=== PATIENT | female | born 1935 | race Caucasian/White ===

== ENCOUNTER 2023-10-22 11:25 | Inpatient (IN) | payer MEDICARE ==
[2023-10-22] MEDS: SODIUM CHLORIDE 0.9% 1,000 ML IV ONE (12:07)
[2023-10-22 12:29] LABS: Basophils # (A) 0.1 k/uL (0-0.2); Basophils % (A) 1 %; Eosinophils # (A) 0.2 k/uL (0-0.7); Eosinophils % (A) 2 %; HCT 45.6 % (34.0-46.0); HGB 14.7 gm/dL (11.4-16.0); Lymphocytes # (A) 1.5 k/uL (1.0-4.8); Lymphocytes % (A) 12 %; MCH 28.6 pg (25.0-35.0); MCHC 32.2 g/dL (31.0-37.0); Mean Platelet Volume 8.2; Monocytes # (A) 0.9 k/uL (0-1.0); Monocytes % (A) 7 %; Neutrophils % (A) 76 %; Platelet Count 367 k/uL (150-450); RBC 5.12 m/uL (3.80-5.40); RDW 14.9 % (11.5-15.5); WBC 11.8 k/uL (3.8-10.6)
[2023-10-22 12:45] LABS: ALT 25 U/L (4-34); AST 44 U/L (14-36); African American GFR (CKD) 84 (>60 ml/min/1.73 sqM); Albumin 4.4 g/dL (3.5-5.0); Alkaline Phosphatase 73 U/L (38-126); Anion Gap 13 mmol/L; Blood Urea Nitrogen 32 mg/dL (7-17); Calcium 9.6 mg/dL (8.4-10.2); Carbon Dioxide 21 mmol/L (22-30); Chloride 105 mmol/L (98-107); Glucose 131 mg/dL (74-99); Non-African American GFR(CKD) 73 (>60 ml/min/1.73 sqM); Sodium 139 mmol/L (137-145); Total Bilirubin 1.1 mg/dL (0.2-1.3); Total Protein 8.3 g/dL (6.3-8.2)
--- NOTE | 2023-10-22 12:48 | CT ---
EXAMINATION TYPE: CT brain wo con CT DLP: 1138.4 mGycm, Automated exposure control for dose reduction was used. DATE OF EXAM: 10/22/2023 12:30 PM COMPARISON: None. CLINICAL INDICATION:Female, 88 years old with history of Altered mental status, TECHNIQUE: Brain: Axial CT images of the brain were obtained with coronal and sagittal reformats created and rev iewed. Contrast used: None. Oral contrast used: None. FINDINGS: Brain: Extra-axial spaces: No abnormal extra-axial fluid collections. Ventricular system: Dilatation in proportion to cerebral atrophy. Cerebral parenchyma: Cerebral atrophy. Left parietal remote injury with encephalomalacia. No acute in traparenchymal hemorrhage or mass effect. The bragg-white junction is well differentiated. Scattered hypoattenuating areas are seen within the white matter. Cerebellum: Unremarkable. Mass effect: No evidence of midline shift. Intracranial vasculature: Atherosclerotic calcifications of the intracranial vessels. Soft tissues: Normal. Calvarium/osseous structures: No depressed skull fracture. Paranasal sinuses and mastoid air cells: Mild scattered paranasal sinus disease. Visualized orbits: Bilaterally aphakia IMPRESSION: 1. No acute intracranial process. 2. Left parietal remote injury with encephalomalacia. 3. Nonspecific white matter changes, likely secondary to chronic small vessel ischemic disease.
--- NOTE | 2023-10-22 12:50 | XR ---
EXAMINATION TYPE: XR chest 2V DATE OF EXAM: 10/22/2023 12:35 PM CLINICAL INDICATION:Female, 88 years old with history of altered mental status; COMPARISON: Chest radiographs from 10/22/2023. TECHNIQUE: XR chest 2V Frontal and lateral views of the chest. FINDINGS: Lungs/Pleura: There is no evidence of pleural effusion, focal consolidation, or pneumothorax. Pulmonary vascularity: Pulmonary vascular congestion. Heart/mediastinum: Cardiomediastinal silhouette is enlarged and stable. Musculoskeletal: No acute osseous pathology. IMPRESSION: Cardiomegaly and mild pulmonary vascular congestion. Correlate with BNP for congestive heart failure.
--- NOTE | 2023-10-22 12:56 | ED ---
Altered Mental Status HPI - General Chief Complaint: Altered Mental Status Stated Complaint: AMS Time Seen by Provider: 10/22/23 11:40 Source: EMS Mode of arrival: EMS Limitations: altered mental status - History of Present Illness Initial Comments: 88-year-old female presents to the emergency department from [facility]. It is reported by EMS that the patient was found unresponsive in her wheelchair. They state that she is normally alert to self however she was minimally responsive upon them evaluating her. They felt that her last normal well was an hour. They deny that the patient had any injuries. She had no lateralizing de ficits. She is currently being treated for a urinary tract infection. Patient does arrive in A-fib with RVR. Family denies history of A-fib. Patient does not take any blood thinners. They deny history of strokes. They state that they would like the patient to have no aggressive medical measures to include CPR and intubation Upon further discussion with the family they state that previously she was living at home. She was found confused 1 day and transferred into [facility]. They found that she had advanced dementia and a urinary tract infection. Patient was just transferred to [facility] 2 days ago - Related Data Home Medications Medication Instructions Recorded Confirmed Aspirin 81 mg PO DAILY 10/22/23 10/22/23 Cefuroxime [Ceftin] 250 mg PO BID 10/22/23 10/22/23 Famotidine [Pepcid] 20 mg PO DAILY 10/22/23 10/22/23 Multivitamins, Thera [Multivitamin 1 tab PO HS 10/22/23 10/22/23 (formulary)] QUEtiapine [SEROquel] 25 mg PO HS@199910/22/23 10/22/23 Simvastatin [Zocor] 20 mg PO HS@199910/22/23 10/22/23 Sodium Chloride 0.65% Nasal [Deep 1 spr NASAL Q1HR PRN 10/22/23 10/22/23 Sea (Saline)] amLODIPine [Norvasc] 2.5 mg PO DAILY 10/22/23 10/22/23 Allergies Allergy/AdvReac Type Severity Reaction Status Date / Time No Known Allergies Allergy Verified 10/22/23 18:37 Review of Systems ROS Statement: Those systems with pertinent positive or pertinent negative responses have been documented in the HPI. ROS Other: All systems not noted in ROS Statement are negative. Past Medical History Past Medical History: Dementia Additional Past Medical History / Comment(s): hypokalemia General Exam Limitations: altered mental status General appearance: lethargic Head exam: Present: atraumatic, normocephalic, normal inspection Eye exam: Present: normal appearance, PERRL, EOMI. Absent: scleral icterus, conjunctival injection, periorbital swelling ENT exam: Present: mucous membranes dry Respiratory exam: Present: decreased breath sounds Cardiovascular Exam: Present: tachycardia, irregular rhythm GI/Abdominal exam: Present: soft, normal bowel sounds. Absent: distended, tenderness, guarding, rebound, rigid Neurological exam: Present: altered Skin exam: Present: warm, dry, intact, normal color. Absent: rash Course Vital Signs 10/22/23 10/22/23 10/22/23 11:35 11:43 12:10 Temperature 98.1 F Pulse Rate 158 H 149 H 133 H Pulse Rate [ Pulse Oximetery ] Respiratory 14 38 H 19 Rate Blood Pressure 89/78 105/73 81/68 Blood Pressure [Left Arm] O2 Sat by Pulse 97 96 96 Oximetry 10/22/23 10/22/23 10/22/23 13:00 13:03 13:30 Temperature Pulse Rate 111 H 102 H 98 Pulse Rate [ Pulse Oximetery ] Respiratory 24 20 20 Rate Blood Pressure 137/67 122/57 167/76 Blood Pressure [Left Arm] O2 Sat by Pulse 96 97 Oximetry 10/22/23 10/22/23 10/22/23 14:00 14:30 15:00 Temperature Pulse Rate 107 H 85 104 H Pulse Rate [ Pulse Oximetery ] Respiratory 22 20 16 Rate Blood Pressure 139/65 118/64 127/70 Blood Pressure [Left Arm] O2 Sat by Pulse 97 97 94 L Oximetry 10/22/23 10/22/23 10/22/23 15:30 16:33 20:00 Temperature 97.5 F L 97.4 F L Pulse Rate 98 Pulse Rate [ 96 93 Pulse Oximetery ] Respiratory 15 18 16 Rate Blood Pressure 130/74 Blood Pressure 127/77 116/69 [Left Arm] O2 Sat by Pulse 95 97 Oximetry 10/22/23 20:17 Temperature 97.6 F Pulse Rate 101 H Pulse Rate [ Pulse Oximetery ] Respiratory 16 Rate Blood Pressure 114/55 Blood Pressure [Left Arm] O2 Sat by Pulse 95 Oximetry Medical Decision Making - Medical Decision Making Was pt. sent in by a medical professional or institution ([facility], BAG MACHINE OPERATOR HELPER, urgent care, hospital, or long term...) When possible be specific @ -Rehab facility Did you speak to anyone other than the patient for history (EMS, parent, family, police, friend...)? What history was obtained from this source @ -EMS and family Did you review nursing and triage notes (agree or disagree)? Why? @ -I reviewed and agree with nursing and triage notes Were old charts reviewed (outside hosp., previous admission, EMS record, old EKG, old radiological studies, urgent care reports/EKG's, long term records)? Report findings @ -I reviewed paperwork that came from the patient's rehab facility Differential Diagnosis (chest pain, altered mental status, abdominal pain women, abdominal pain men, vaginal bleeding, weakness, fever, dyspnea, syncope, headache, dizziness, GI bleed, back pain, seizure, CVA, palpatations, mental health, musculoskeletal)? @ -Differential Altered Mental Status: Hypoglycemia, DKA, hypercapnia, ETOH, overdose, CO poisoning, trauma, myxedema coma, HTN encephalopathy, infection, encephalitis, psychosis, intercranial hemorrhage, hepatic encephalopathy, meningitis, CVA, this is not meant to be an all-inclusive list EKG interpreted by me (3pts min.). @ -Yes and demonstrates A-fib with a rate of 145. QRS 157. QTc of 399. No acute ST segment elevations or depressions Repeat EKG done at 1405 continues to demonstrate tachycardic regular rhythm with a rate of 111. [place] interval 228. QRS 144. QTc of 406. Right bundle branch block. X-rays interpreted by me (1pt min.). @ -Yes and demonstrates some pulmonary vascular congestion CT interpreted by me (1pt min.). @ -Yes and demonstrates old area of encephalomalacia U/S interpreted by me (1pt. min.). @ -None done What testing was considered but not performed or refused? (CT, X-rays, U/S, labs)? Why? @ -None What meds were considered but not given or refused? Why? @ -Cardizem however patient is already hypotensive Did you discuss the management of the patient with other professionals (professionals i.e. Dr., PA, BAG MACHINE OPERATOR HELPER, lab, RT, psych nurse, social professionals, business employment specialist, teacher, community development officer, leather case finisher)? Give summary @ -Spoke with Dr. Wagner Was smoking cessation discussed for >3mins.? @ -No Was critical care preformed (if so, how long)? @ -Yes, 35 minutes for rapid evaluation of patient who arrives with hypotension and tachycardia with altered mental status Were there social determinants of health that impacted care today? How? (Homelessness, low income, unemployed, alcoholism, drug addiction, transportation, low edu. Level, literacy, decrease access to med. care, fpc, rehab)? @ -No Was there de-escalation of care discussed even if they declined (Discuss DNR or withdrawal of care, Hospice)? DNR status @ -Yes, family would like the patient to be DNR/DNI What co-morbidities impacted this encounter? (DM, HTN, Smoking, COPD, CAD, Cancer, CVA, ARF, Chemo, Hep., AIDS, mental health diagnosis, sleep apnea, morbid obesity)? @ -Advanced dementia Was patient admitted / discharged? Hospital course, mention meds given and route, prescriptions, significant lab abnormalities, going to OR and other pertinent info. @ -Admitted. Upon arrival patient is promptly placed into trauma bay 1. She arrives altered, tachycardic in A-fib with hypotension. I spoke with the patient's family immediately who states that they would like the patient to be a DNR/DNI. The patient is given intravenous fluids due to hypotension. Decision is made to not cardiovert the patient as family would not like any advanced life -saving measures taken. Laboratory studies were conducted. Chest x-ray was performed. CT of the brain was performed. High concern for CVA due to alteration of mental status. Patient was given a dose of Rocephin as her urinalysis still demonstrates infection. I discussed the care with the patie nt's family. She will be admitted for neurology evaluation and possible hospice consult. Patient admitted to the floor in stable condition Undiagnosed new problem with uncertain prognosis? @ -Yes Drug Therapy requiring intensive monitoring for toxicity (Heparin, Nitro, Insulin, Cardizem)? @ -No Were any procedures done? @ -No Diagnosis/symptom? @ -Acute encephalopathy, new onset A-fib with RVR, hypotension UTI, possible CVA Acute, or Chronic, or Acute on Chronic? @ -Acute Uncomplicated (without systemic symptoms) or Complicated (systemic symptoms)? @ -Complicated Side effects of treatment? @ -No Exacerbation, Progression, or Severe Exacerbation? @ -No Poses a threat to life or bodily function? How? (Chest pain, [place], [place], pneumonia, PE, COPD, DKA, ARF, appy, cholecystitis, CVA, Diverticulitis, Homicidal, Suicidal, threat to staff... and all critical care pts) @ -Yes, patient could succumb to her illness - Lab Data Result diagrams: 10/22/23 11:55 10/22/23 11:55 Lab Results 10/22/23 10/22/23 10/22/23 Range/Units 11:55 11:55 11:55 WBC 11.8 H (3.8-10.6) k/uL RBC 5.12 (3.80-5.40) m/uL Hgb 14.7 (11.4-16.0) gm/dL Hct 45.6 (34.0-46.0) % MCV 89.0 (80.0-100.0) fL MCH 28.6 (25.0-35.0) pg MCHC 32.2 (31.0-37.0) g/dL RDW 14.9 (11.5-15.5) % Plt Count 367 (150-450) k/uL MPV 8.2 Neutrophils % 76 % Lymphocytes % 12 % Monocytes % 7 % Eosinophils % 2 % Basophils % 1 % Neutrophils # 9.0 H (1.3-7.7) k/uL Lymphocytes # 1.5 (1.0-4.8) k/uL Monocytes # 0.9 (0-1.0) k/uL Eosinophils # 0.2 (0-0.7) k/uL Basophils # 0.1 (0-0.2) k/uL PT (10.0-12.5) sec INR (<1.2) APTT (22.0-30.0) sec D-Dimer (<0.60) mg/L FEU Sodium 139 (137-145) mmol/L Potassium 4.7 (3.5-5.1) mmol/L Chloride 105 (98-107) mmol/L Carbon Dioxide 21 L (22-30) mmol/L Anion Gap 13 mmol/L BUN 32 H (7-17) mg/dL Creatinine 0.75 (0.52-1.04) mg/dL Est GFR (CKD-EPI)AfAm 84 (>60 ml/min/1.73 sqM) Est GFR (CKD-EPI)NonAf 73 (>60 ml/min/1.73 sqM) Glucose 131 H (74-99) mg/dL Lactic Ac Sepsis Rflx Plasma Lactic Acid Matti (0.7-2.0) mmol/L Calcium 9.6 (8.4-10.2) mg/dL Total Bilirubin 1.1 (0.2-1.3) mg/dL AST 44 H (14-36) U/L ALT 25 (4-34) U/L Alkaline Phosphatase 73 (38-126) U/L Troponin I 0.024 (0.000-0.034) ng/mL Total Protein 8.3 H (6.3-8.2) g/dL Albumin 4.4 (3.5-5.0) g/dL TSH 12.100 H (0.465-4.680) mIU/L Free T4 1.45 (0.78-2.19) ng/dL Urine Color Urine Appearance (Clear) Urine pH (5.0-8.0) Ur Specific [place] (1.001-1.035) Urine Protein (Negative) Urine Glucose (UA) (Negative) Urine Ketones (Negative) Urine Blood (Negative) Urine Nitrite (Negative) Urine Bilirubin (Negative) Urine Urobilinogen (<2.0) mg/dL Ur Leukocyte Esterase (Negative) Urine RBC (0-5) /hpf Urine WBC (0-5) /hpf Ur Squamous Epith Cells (0-4) /hpf Urine Bacteria (None) /hpf Hyaline Casts (0-2) /lpf Urine Mucus (None) /hpf Urine Opiates Screen (NotDetected) Ur Oxycodone Screen (NotDetected) Urine Methadone Screen (NotDetected) Ur Barbiturates Screen (NotDetected) U Tricyclic Antidepress (NotDetected) Ur Phencyclidine Scrn (NotDetected) Ur Amphetamines Screen (NotDetected) U Methamphetamines Scrn (NotDetected) U Benzodiazepines Scrn (NotDetected) Urine Cocaine Screen (NotDetected) U Marijuana (THC) Screen (NotDetected) Influenza Type A (PCR) (Not Detectd) Influenza Type B (PCR) (Not Detectd) RSV (PCR) (Not Detectd) SARS-CoV-2 (PCR) (Not Detectd) 10/22/23 10/22/23 10/22/23 Range/Units 11:56 11:56 12:57 WBC (3.8-10.6) k/uL RBC (3.80-5.40) m/uL Hgb (11.4-16.0) gm/dL Hct (34.0-46.0) % MCV (80.0-100.0) fL MCH (25.0-35.0) pg MCHC (31.0-37.0) g/dL RDW (11.5-15.5) % Plt Count (150-450) k/uL MPV Neutrophils % % Lymphocytes % % Monocytes % % Eosinophils % % Basophils % % Neutrophils # (1.3-7.7) k/uL Lymphocytes # (1.0-4.8) k/uL Monocytes # (0-1.0) k/uL Eosinophils # (0-0.7) k/uL Basophils # (0-0.2) k/uL PT 11.1 (10.0-12.5) sec INR 1.0 (<1.2) APTT 22.1 (22.0-30.0) sec D-Dimer 1.16 H (<0.60) mg/L FEU Sodium (137-145) mmol/L Potassium (3.5-5.1) mmol/L Chloride (98-107) mmol/L Carbon Dioxide (22-30) mmol/L Anion Gap mmol/L BUN (7-17) mg/dL Creatinine (0.52-1.04) mg/dL Est GFR (CKD-EPI)AfAm (>60 ml/min/1.73 sqM) Est GFR (CKD-EPI)NonAf (>60 ml/min/1.73 sqM) Glucose (74-99) mg/dL Lactic Ac Sepsis Rflx Plasma Lactic Acid Matti 2.1 H* (0.7-2.0) mmol/L Calcium (8.4-10.2) mg/dL Total Bilirubin (0.2-1.3) mg/dL AST (14-36) U/L ALT (4-34) U/L Alkaline Phosphatase (38-126) U/L Troponin I (0.000-0.034) ng/mL Total Protein (6.3-8.2) g/dL Albumin (3.5-5.0) g/dL TSH (0.465-4.680) mIU/L Free T4 (0.78-2.19) ng/dL Urine Color Urine Appearance (Clear) Urine pH (5.0-8.0) Ur Specific [place] (1.001-1.035) Urine Protein (Negative) Urine Glucose (UA) (Negative) Urine Ketones (Negative) Urine Blood (Negative) Urine Nitrite (Negative) Urine Bilirubin (Negative) Urine Urobilinogen (<2.0) mg/dL Ur Leukocyte Esterase (Negative) Urine RBC (0-5) /hpf Urine WBC (0-5) /hpf Ur Squamous Epith Cells (0-4) /hpf Urine Bacteria (None) /hpf Hyaline Casts (0-2) /lpf Urine Mucus (None) /hpf Urine Opiates Screen (NotDetected) Ur Oxycodone Screen (NotDetected) Urine Methadone Screen (NotDetected) Ur Barbiturates Screen (NotDetected) U Tricyclic Antidepress (NotDetected) Ur Phencyclidine Scrn (NotDetected) Ur Amphetamines Screen (NotDetected) U Methamphetamines Scrn (NotDetected) U Benzodiazepines Scrn (NotDetected) Urine Cocaine Screen (NotDetected) U Marijuana (THC) Screen (NotDetected) Influenza Type A (PCR) Not Detected (Not Detectd) Influenza Type B (PCR) Not Detected (Not Detectd) RSV (PCR) Not Detected (Not Detectd) SARS-CoV-2 (PCR) Not Detected (Not Detectd) 10/22/23 10/22/23 10/22/23 Range/Units 13:04 14:00 14:00 WBC (3.8-10.6) k/uL RBC (3.80-5.40) m/uL Hgb (11.4-16.0) gm/dL Hct (34.0-46.0) % MCV (80.0-100.0) fL MCH (25.0-35.0) pg MCHC (31.0-37.0) g/dL RDW (11.5-15.5) % Plt Count (150-450) k/uL MPV Neutrophils % % Lymphocytes % % Monocytes % % Eosinophils % % Basophils % % Neutrophils # (1.3-7.7) k/uL Lymphocytes # (1.0-4.8) k/uL Monocytes # (0-1.0) k/uL Eosinophils # (0-0.7) k/uL Basophils # (0-0.2) k/uL PT (10.0-12.5) sec INR (<1.2) APTT (22.0-30.0) sec D-Dimer (<0.60) mg/L FEU Sodium (137-145) mmol/L Potassium (3.5-5.1) mmol/L Chloride (98-107) mmol/L Carbon Dioxide (22-30) mmol/L Anion Gap mmol/L BUN (7-17) mg/dL Creatinine (0.52-1.04) mg/dL Est GFR (CKD-EPI)AfAm (>60 ml/min/1.73 sqM) Est GFR (CKD-EPI)NonAf (>60 ml/min/1.73 sqM) Glucose (74-99) mg/dL Lactic Ac Sepsis Rflx Y Plasma Lactic Acid Matti (0.7-2.0) mmol/L Calcium (8.4-10.2) mg/dL Total Bilirubin (0.2-1.3) mg/dL AST (14-36) U/L ALT (4-34) U/L Alkaline Phosphatase (38-126) U/L Troponin I (0.000-0.034) ng/mL Total Protein (6.3-8.2) g/dL Albumin (3.5-5.0) g/dL TSH (0.465-4.680) mIU/L Free T4 (0.78-2.19) ng/dL Urine Color Yellow Urine Appearance Cloudy H (Clear) Urine pH 6.0 (5.0-8.0) Ur Specific [place] 1.017 (1.001-1.035) Urine Protein Trace H (Negative) Urine Glucose (UA) Negative (Negative) Urine Ketones Trace H (Negative) Urine Blood Small H (Negative) Urine Nitrite Negative (Negative) Urine Bilirubin Negative (Negative) Urine Urobilinogen <2.0 (<2.0) mg/dL Ur Leukocyte Esterase Small H (Negative) Urine RBC 21 H (0-5) /hpf Urine WBC 33 H (0-5) /hpf Ur Squamous Epith Cells 3 (0-4) /hpf Urine Bacteria Rare H (None) /hpf Hyaline Casts 7 H (0-2) /lpf Urine Mucus Rare H (None) /hpf Urine Opiates Screen Not Detected (NotDetected) Ur Oxycodone Screen Not Detected (NotDetected) Urine Methadone Screen Not Detected (NotDetected) Ur Barbiturates Screen Not Detected (NotDetected) U Tricyclic Antidepress Detected H (NotDetected) Ur Phencyclidine Scrn Not Detected (NotDetected) Ur Amphetamines Screen Not Detected (NotDetected) U Methamphetamines Scrn Not Detected (NotDetected) U Benzodiazepines Scrn Not Detected (NotDetected) Urine Cocaine Screen Not Detected (NotDetected) U Marijuana (THC) Screen Not Detected (NotDetected) Influenza Type A (PCR) (Not Detectd) Influenza Type B (PCR) (Not Detectd) RSV (PCR) (Not Detectd) SARS-CoV-2 (PCR) (Not Detectd) Disposition Clinical Impression: Altered mental status, New onset a-fib Disposition: ADMITTED IP TO THIS [facility] Condition: Serious Is patient prescribed a controlled substance at d/c from ED?: No Time of Disposition: 14:08 Decision to Admit Reason: Admit from EC Decision Date: 10/22/23 Decision Time: 14:08
[2023-10-22 13:03] LABS: Potassium 4.7 mmol/L (3.5-5.1)
[2023-10-22 13:34] LABS: Partial Thromboplastin Time 22.1 sec (22.0-30.0); Prothrombin Time 11.1 sec (10.0-12.5)
[2023-10-22 14:29] LABS: T4, Free (Free Thyroxine) 1.45 ng/dL (0.78-2.19)
[2023-10-22] MEDS ORDERED: NALOXONE 0.4 MG/ML 1 ML VIAL IV PRN (14:57)
[2023-10-22 15:04] LABS: Appearance,Urine Cloudy (Clear); Bacteria,Urine Rare /hpf; Bilirubin,Urine Negative (Negative); Blood,Urine Small (Negative); Color,Urine Yellow; Glucose,Urine (UA) Negative (Negative); Hyaline Casts,Urine 7 /lpf (0-2); Ketones,Urine Trace (Negative); Leukocyte Esterase,Urine Small (Negative); Mucus,Urine Rare /hpf; Nitrite,Urine Negative (Negative); Protein,Urine Trace (Negative); RBC,Urine 21 /hpf (0-5); Specific Gravity,Urine 1.017 (1.001-1.035); Squamous Epithelial Cell,Urine 3 /hpf (0-4); Urobilinogen,Urine <2.0 mg/dL (<2.0); WBC,Urine 33 /hpf (0-5)
[2023-10-22 15:16] LABS: Amphetamine Screen,Urine Not Detected (NotDetected); Barbiturate Screen,Urine Not Detected (NotDetected); Benzodiazepines Screen,Urine Not Detected (NotDetected); Cocaine Screen,Urine Not Detected (NotDetected); Methadone Screen, Urine Not Detected (NotDetected); Opiate Screen,Urine Not Detected (NotDetected); Oxycodone Screen, Urine Not Detected (NotDetected); Phencyclidine Screen,Urine Not Detected (NotDetected); Tricyclic Antidepressant,Urine Detected (NotDetected); Urn Cannabinoid Scrn Not Detected (NotDetected)
[2023-10-22] MEDS ORDERED: LORazepam 2 MG/ML INJ IV PRN (17:01)
--- NOTE | 2023-10-22 17:01 | P.HPIM ---
History of Present Illness H&P Date: 10/22/23 Patient is a an 88-year-old female with known dementia...... who was sent in from her shelter facility for decreased responsiveness. Of note the patient was recently at [facility] after she was found wandering and confused in her neighborhood. There she was diagnosed with underlying dementia worsened by urinary tract infection and was subsequently discharged to [facility] where she has been for approximately 1 week. On arrival to the ER here she was found to be in atrial fibrillation with rapid ventricular response and was hypotensive with a blood pressure of 89/78. Initial laboratory analysis consisted of CBC, coags, D-dimer, CMP, lactic acid, and TSH which are remarkable for white blood cell count 11.8, lactic acid 2.1, and TSH of 12.1. Influenza A/B/RSV/COVID-[address] brain demonstrated left parietal remote injury with encephalomalacia and nonspecific cortical white matter changes. Chest x-ray demonstrated cardiomegaly with mild pulmonary vascular congestion. In the ER she received 1 L of normal saline. Patient seen and examined at bedside. She initially denied pain to me but then endorsed neck and back pain to the family. Family is present at bedside. They report that she has had a slow downhill decline over the last several months and she was significantly confused at home. They do not want any extensive workup done at this time and would like to focus on keeping her comfortable. They do not want any aggressive testing including echocardiograms or MRI brain. They would really like to focus on comfort. Vital signs reviewed General: nontoxic, no distress, appears at stated age Derm: warm, dry, bruising over bilateral anterior shins Eyes: EOMI, no lid lag, anicteric sclera, pupils equal round reactive to light ENT: Nose and ears atraumatic Cardiovascular: S1S2 reg, no murmur, no edema Lungs: Decreased breath sounds bilateral, no rhonchi, no rales, no wheeze, no accessory muscle use Abdominal: soft, nontender to palpation, no guarding Ext: no gross muscle atrophy, no contractures Neuro: CN II-XII grossly intact, No focal neuro deficits Psych: Alert, oriented to self and place, appropriate affect Assessment/Plan: Episode of decreased responsiveness Atrial fibrillation with rapid ventricular response, newly discovered Intractable neck pain Advanced dementia with behavioral disturbances Hypertension -Case discussed with family. They declined any advanced testing such as echocardiogram or MRI of the brain at this time. -Follow blood pressures -Toradol 15 mg IV every 6 hours as needed moderate pain, morphine 2 mg IV every 4 hours as needed severe pain, Ativan 0.5 mg IV every 6 hours as needed anxiety, Haldol 2 mg oral every 6 hours as needed hallucinations -Consult hospice -Telemetry Family has been in discussion they would like to keep patient comfortable and be respectful of what she would want for herself. They do not want to hasten but do not want any aggressive measures. They would like medications I will keep her comfortable but do not feel that they need things such as cholesterol- lowering medications or medications to address things such as blood pressures. They have declined an MRI. We discussed that this may be more consistent with the philosophy of hospice or if not she could return to [facility] with possibly in order to not rehospitalize or provide aggressive measures. Family would like to think about it and would like to meet with hospice. Imaging: As per HPI Data Review: As per HPI The patient is admitted with an anticipated greater than 2 midnight stay for evaluation of decreased responsiveness. CODE STATUS: DO NOT RESUSCITATE DVT prophylaxis: SCDs Anticipated discharge date: Pending clinical course Anticipated discharge place: Pending clinical course This dictation was prepared using [employer] voice recognition software. Though every attempt is made to correct errors during dictation some may still exist. Past Medical History Past Medical History: Dementia, Hypertension Additional Past Medical History / Comment(s): hypokalemia, Hx UTI Past Psychological History: Anxiety Smoking Status: Never smoker Past Alcohol Use History: None Reported Past Drug Use History: None Reported Medications and Allergies Allergies Allergy/AdvReac Type Severity Reaction Status Date / Time No Known Allergies Allergy Verified 10/22/23 12:06 Physical Exam Osteopathic Statement: *. No significant issues noted on an osteopathic structural exam other than those noted in the History and Physical/Consult. Vitals: Vital Signs Temp Pulse Pulse Resp BP BP Pulse Ox 10/22/23 16:33 97.5 F L 96 18 127/77 95 10/22/23 15:30 98 15 130/74 10/22/23 15:00 104 H 16 127/70 94 L 10/22/23 14:30 85 20 118/64 97 10/22/23 14:00 107 H 22 139/65 97 10/22/23 13:30 98 20 167/76 97 10/22/23 13:03 102 H 20 122/57 10/22/23 13:00 111 H 24 137/67 96 10/22/23 12:10 133 H 19 81/68 96 10/22/23 11:43 149 H 38 H 105/73 96 10/22/23 11:35 98.1 F 158 H 14 89/78 97 Intake and Output 10/22/23 10/22/23 10/22/23 06:59 14:59 22:59 Other: Weight 90.718 kg Results CBC & Chem 7: 10/22/23 11:55 10/22/23 11:55 Labs: Abnormal Lab Results - Last 24 Hours (Table) 10/22/23 10/22/23 10/22/23 Range/Units 11:55 11:55 11:56 WBC 11.8 H (3.8-10.6) k/uL Neutrophils # 9.0 H (1.3-7.7) k/uL D-Dimer (<0.60) mg/L FEU Carbon Dioxide 21 L (22-30) mmol/L BUN 32 H (7-17) mg/dL Glucose 131 H (74-99) mg/dL Plasma Lactic Acid Matti 2.1 H* (0.7-2.0) mmol/L AST 44 H (14-36) U/L Total Protein 8.3 H (6.3-8.2) g/dL TSH 12.100 H (0.465-4.680) mIU/L Urine Appearance (Clear) Urine Protein (Negative) Urine Ketones (Negative) Urine Blood (Negative) Ur Leukocyte Esterase (Negative) Urine RBC (0-5) /hpf Urine WBC (0-5) /hpf Urine Bacteria (None) /hpf Hyaline Casts (0-2) /lpf Urine Mucus (None) /hpf U Tricyclic Antidepress (NotDetected) 10/22/23 10/22/23 10/22/23 Range/Units 12:57 14:00 14:00 WBC (3.8-10.6) k/uL Neutrophils # (1.3-7.7) k/uL D-Dimer 1.16 H (<0.60) mg/L FEU Carbon Dioxide (22-30) mmol/L BUN (7-17) mg/dL Glucose (74-99) mg/dL Plasma Lactic Acid Matti (0.7-2.0) mmol/L AST (14-36) U/L Total Protein (6.3-8.2) g/dL TSH (0.465-4.680) mIU/L Urine Appearance Cloudy H (Clear) Urine Protein Trace H (Negative) Urine Ketones Trace H (Negative) Urine Blood Small H (Negative) Ur Leukocyte Esterase Small H (Negative) Urine RBC 21 H (0-5) /hpf Urine WBC 33 H (0-5) /hpf Urine Bacteria Rare H (None) /hpf Hyaline Casts 7 H (0-2) /lpf Urine Mucus Rare H (None) /hpf U Tricyclic Antidepress Detected H (NotDetected)
[2023-10-22] MEDS: cefTRIAXone IN SWFI 1,000 MG/10 ML SYRINGE IVP STA (17:39)
[2023-10-22] MEDS: ASPIRIN 81 MG PO STA (17:40)
[2023-10-22] MEDS: SODIUM CHLORIDE 0.9% 1,000 ML IV SCH (17:40)
[2023-10-22] MEDS: KETOROLAC 15 MG/ML 1 ML VIAL IVP PRN (20:12)
[2023-10-22] MEDS: MORPHINE SULFATE 2 MG/ML SYRINGE IVP PRN (20:40)
[2023-10-22] MEDS: ZINC OXIDE PASTE (Z-GUARD) 1 APPLIC TOPICAL PRN (21:04)
[2023-10-23] MEDS: ASPIRIN 81 MG PO SCH (08:08)
--- NOTE | 2023-10-23 09:10 | P.CRDCN ---
History of Present Illness Consult date: 10/23/23 Consult reason: atrial fibrillation History of present illness: This is Taran Yee NP, I'm dictating on behalf of Dr. Gordon's H&P and A&P The patient was interviewed and examined. HPI: Patient is currently under hospice consultation. Review of history and physical shows that patient does not want any invasive testing including any new medications. Discussion with nursing states that patient's not on telemetry and that family is currently requesting comfort care. No need for cardiology assessment at this time. ROS: Not done EXAMINATION: Not done REVIEW OF LABS, ECG & MEDICAL DATA: LABS: EKG: IMAGING: VITALS: IMPRESSION: New onset A-fib with RVR PLAN: Family does not want any invasive testing or new medications added. Hospice has been consulted. No need for cardiology consult. Thank you for the consult and allowing us to participate in the care of this patient. Past Medical History Past Medical History: Dementia, Hypertension Additional Past Medical History / Comment(s): hypokalemia, Hx UTI History of Any Multi-Drug Resistant Organisms: None Reported Past Anesthesia/Blood Transfusion Reactions: No Reported Reaction Past Psychological History: Anxiety Smoking Status: Never smoker Past Alcohol Use History: None Reported Past Drug Use History: None Reported Medications and Allergies Home Medications Medication Instructions Recorded Confirmed Type Aspirin 81 mg PO DAILY 10/22/23 10/22/23 History Cefuroxime [Ceftin] 250 mg PO BID 10/22/23 10/22/23 History Famotidine [Pepcid] 20 mg PO DAILY 10/22/23 10/22/23 History Multivitamins, Thera [Multivitamin 1 tab PO HS 10/22/23 10/22/23 History (formulary)] QUEtiapine [SEROquel] 25 mg PO HS@199910/22/23 10/22/23 History Simvastatin [Zocor] 20 mg PO HS@199910/22/23 10/22/23 History Sodium Chloride 0.65% Nasal [Deep 1 spr NASAL Q1HR PRN 10/22/23 10/22/23 History Sea (Saline)] amLODIPine [Norvasc] 2.5 mg PO DAILY 10/22/23 10/22/23 History Allergies Allergy/AdvReac Type Severity Reaction Status Date / Time No Known Allergies Allergy Verified 10/22/23 18:37 Physical Exam Vitals: Vital Signs Temp Pulse Pulse Resp BP BP Pulse Ox 10/23/23 08:07 97.8 F 91 17 131/56 93 L 10/23/23 02:00 98.0 F 95 16 121/70 92 L 10/22/23 20:17 97.6 F 101 H 16 114/55 95 10/22/23 20:00 97.4 F L 93 16 116/69 97 10/22/23 16:33 97.5 F L 96 18 127/77 95 10/22/23 15:30 98 15 130/74 10/22/23 15:00 104 H 16 127/70 94 L 10/22/23 14:30 85 20 118/64 97 10/22/23 14:00 107 H 22 139/65 97 10/22/23 13:30 98 20 167/76 97 10/22/23 13:03 102 H 20 122/57 10/22/23 13:00 111 H 24 137/67 96 10/22/23 12:10 133 H 19 81/68 96 10/22/23 11:43 149 H 38 H 105/73 96 10/22/23 11:35 98.1 F 158 H 14 89/78 97 Intake and Output 10/22/23 10/23/23 10/23/23 22:59 06:59 14:59 Intake Total 250 1610 Output Total 200 Balance 250 1410 Intake: IV 10 Invasive Line 1 10 Intake, IV Titration 900 Amount Sodium Chloride 0.9% 1, 900 000 ml @ 75 mls/hr IV . [id number] [facility] Rx#:[id number] Oral 240 710 Output: Urine 200 Other: Voiding Method External Catheter External Catheter Weight 90.718 kg Results 10/22/23 11:55 10/22/23 11:55 Cardiac Enzymes 10/22/23 10/22/23 Range/Units 11:55 11:55 AST 44 H (14-36) U/L Troponin I 0.024 (0.000-0.034) ng/mL Coagulation 10/22/23 Range/Units 12:57 PT 11.1 (10.0-12.5) sec APTT 22.1 (22.0-30.0) sec CBC 10/22/23 Range/Units 11:55 WBC 11.8 H (3.8-10.6) k/uL RBC 5.12 (3.80-5.40) m/uL Hgb 14.7 (11.4-16.0) gm/dL Hct 45.6 (34.0-46.0) % Plt Count 367 (150-450) k/uL Comprehensive Metabolic Panel 10/22/23 Range/Units 11:55 Sodium 139 (137-145) mmol/L Potassium 4.7 (3.5-5.1) mmol/L Chloride 105 (98-107) mmol/L Carbon Dioxide 21 L (22-30) mmol/L BUN 32 H (7-17) mg/dL Creatinine 0.75 (0.52-1.04) mg/dL Glucose 131 H (74-99) mg/dL Calcium 9.6 (8.4-10.2) mg/dL AST 44 H (14-36) U/L ALT 25 (4-34) U/L Alkaline Phosphatase 73 (38-126) U/L Total Protein 8.3 H (6.3-8.2) g/dL Albumin 4.4 (3.5-5.0) g/dL Current Medications Generic Name Dose Route Start Last Admin Trade Name Freq PRN Reason Stop Dose Admin Acetaminophen 650 mg 10/22/23 17:01 Acetaminophen Tab 325 Mg Tab PO Q6HR PRN Mild Pain or Fever > 100.5 Aspirin 81 mg 10/23/23 09:00 10/23/23 08:08 Aspirin 81 Mg PO 81 mg DAILY ALAINA Administration Haloperidol 2 mg 10/22/23 17:03 Haloperidol 2 Mg Tab PO TID PRN Psychosis Sodium Chloride 1,000 mls @ 75 mls/hr 10/22/23 17:15 10/23/23 05:34 Saline 0.9% IV 75 mls/hr .[id number] ALAINA Administration Ketorolac Tromethamine 15 mg 10/22/23 16:47 10/23/23 05:34 Ketorolac 15 Mg/Ml 1 Ml Vial IVP 10/27/23 16:48 15 mg Q6HR PRN Administration Moderate Pain (Scale 4 to 6) Lorazepam 0.5 mg 10/22/23 17:01 Lorazepam 2 Mg/Ml Inj IV Q6HR PRN Anxiety Melatonin 3 mg 10/22/23 17:01 Melatonin 3 Mg Tablet PO HS PRN Insomnia Morphine Sulfate 2 mg 10/22/23 16:48 10/23/23 02:34 Morphine Sulfate 2 Mg/Ml Syringe IVP 2 mg Q4HR PRN Administration Severe Breakthrough Pain Naloxone HCl 0.2 mg 10/22/23 14:57 Naloxone 0.4 Mg/Ml 1 Ml Vial IV Q2M PRN Opioid Reversal Ondansetron HCl 4 mg 10/22/23 17:01 Ondansetron 4 Mg/2 Ml Vial IVP Q8HR PRN Nausea And Vomiting Petrolatum 1 applic 10/22/23 20:49 10/22/23 21:04 Zinc Oxide Paste (Z-Guard) 1 Applic TOPICAL 1 applic Q2HR PRN Administration Wound Healing Protocol Intake and Output 10/22/23 10/23/23 10/23/23 22:59 06:59 14:59 Intake Total 250 1610 Output Total 200 Balance 250 1410 Intake: IV 10 Invasive Line 1 10 Intake, IV Titration 900 Amount Sodium Chloride 0.9% 1, 900 000 ml @ 75 mls/hr IV . [id number] [facility] Rx#:[id number] Oral 240 710 Output: Urine 200 Other: Voiding Method External Catheter External Catheter Weight 90.718 kg 10/22/23 11:55 10/22/23 11:55
--- NOTE | 2023-10-23 11:22 | P.PN ---
Subjective Progress Note Date: 10/23/23 (delayed charting seen at 0830) Patient is a an 88-year-old female with known dementia...... who was sent in from her detention facility for decreased responsiveness. Of note the patient was recently at [facility] after she was found wandering and confused in her neighborhood. There she was diagnosed with underlying dementia worsened by urinary tract infection and was subsequently discharged to [facility] where she has been for approximately 1 week. On arrival to the ER here she was found to be in atrial fibrillation with rapid ventricular response and was hypotensive with a blood pressure of 89/78. Initial laboratory analysis consisted of CBC, coags, D-dimer, CMP, lactic acid, and TSH which are remarkable for white blood cell count 11.8, lactic acid 2.1, and TSH of 12.1. Influenza A/B/RSV/COVID-[address] brain demonstrated left parietal rem ote injury with encephalomalacia and nonspecific cortical white matter changes. Chest x-ray demonstrated cardiomegaly with mild pulmonary vascular congestion. In the ER she received 1 L of normal saline. She was placed in observation and hopsice was consulted. Patient seen and examined at bedside. She complains of neck pain, no nasuea or vomiting. No family present at bedside. Vital signs reviewed General: Nontoxic, no distress, appears at stated age Cardiovascular: S1S2 reg, no murmur Lungs: Decreased bs bilateral, no rhonchi, no rales, no accessory muscle use Abdominal: Soft, nontender to palpation, no guarding Ext: No gross muscle atrophy, no edema b/l lower extremities, no contractures Psych: Alert, oriented, appropriate affect Assessment/Plan: Episode of decreased responsiveness Atrial fibrillation with rapid ventricular response, newly discovered Intractable neck pain Advanced dementia with behavioral disturbances Hypertension -Follow blood pressures -Toradol 15 mg IV every 6 hours as needed moderate pain, morphine 2 mg IV every 4 hours as needed severe pain, Ativan 0.5 mg IV every 6 hours as needed anxiety, Haldol 2 mg oral every 6 hours as needed hallucinations - Plan is d/c to SNF with hospice once arrangement have been made. Imaging: None new Data Review: None new Anticipated discharge date: in AM Anticipated discharge place: SNF with hospice Objective - Vital Signs Vital signs: Vital Signs Temp 97.8 F 10/23/23 08:07 Pulse 91 10/23/23 08:07 Resp 17 10/23/23 08:07 BP 131/56 10/23/23 08:07 Pulse Ox 93 L 10/23/23 08:07 FiO2 Intake & Output 10/22/23 10/23/23 10/23/23 18:59 06:59 18:59 Intake Total 10 1850 Output Total 200 Balance 10 1650 Weight 90.718 kg Intake: IV 10 Invasive Line 1 10 Intake, IV Titration 900 Amount Sodium Chloride 0.9% 1, 900 000 ml @ 75 mls/hr IV . [id number] [facility] Rx#:[id number] Oral 950 Output: Urine 200 Other: Voiding Method External Catheter External Catheter - Labs CBC & Chem 7: 10/22/23 11:55 10/22/23 11:55 Labs: Abnormal Lab Results - Last 24 Hours (Table) 10/22/23 10/22/23 10/22/23 Range/Units 11:55 11:55 11:56 WBC 11.8 H (3.8-10.6) k/uL Neutrophils # 9.0 H (1.3-7.7) k/uL D-Dimer (<0.60) mg/L FEU Carbon Dioxide 21 L (22-30) mmol/L BUN 32 H (7-17) mg/dL Glucose 131 H (74-99) mg/dL Plasma Lactic Acid Matti 2.1 H* (0.7-2.0) mmol/L AST 44 H (14-36) U/L Total Protein 8.3 H (6.3-8.2) g/dL TSH 12.100 H (0.465-4.680) mIU/L Urine Appearance (Clear) Urine Protein (Negative) Urine Ketones (Negative) Urine Blood (Negative) Ur Leukocyte Esterase (Negative) Urine RBC (0-5) /hpf Urine WBC (0-5) /hpf Urine Bacteria (None) /hpf Hyaline Casts (0-2) /lpf Urine Mucus (None) /hpf U Tricyclic Antidepress (NotDetected) 10/22/23 10/22/23 10/22/23 Range/Units 12:57 14:00 14:00 WBC (3.8-10.6) k/uL Neutrophils # (1.3-7.7) k/uL D-Dimer 1.16 H (<0.60) mg/L FEU Carbon Dioxide (22-30) mmol/L BUN (7-17) mg/dL Glucose (74-99) mg/dL Plasma Lactic Acid Matti (0.7-2.0) mmol/L AST (14-36) U/L Total Protein (6.3-8.2) g/dL TSH (0.465-4.680) mIU/L Urine Appearance Cloudy H (Clear) Urine Protein Trace H (Negative) Urine Ketones Trace H (Negative) Urine Blood Small H (Negative) Ur Leukocyte Esterase Small H (Negative) Urine RBC 21 H (0-5) /hpf Urine WBC 33 H (0-5) /hpf Urine Bacteria Rare H (None) /hpf Hyaline Casts 7 H (0-2) /lpf Urine Mucus Rare H (None) /hpf U Tricyclic Antidepress Detected H (NotDetected)
[2023-10-23] MEDS: ONDANSETRON 4 MG/2 ML VIAL IVP PRN (20:33)
[2023-10-24] MEDS: ACETAMINOPHEN TAB 325 MG TAB PO PRN (08:44)
--- NOTE | 2023-10-24 13:29 | P.PN ---
Subjective Progress Note Date: 10/24/23 (delayed charting seen at 0750) Patient is a an 88-year-old female with known dementia...... who was sent in from her [facility] facility for decreased responsiveness. Of note the patient was recently at [facility] after she was found wandering and confused in her neighborhood. There she was diagnosed with underlying dementia worsened by urinary tract infection and was subsequently discharged to [facility] where she has been for approximately 1 week. On arrival to the ER here she was found to be in atrial fibrillation with rapid ventricular response and was hypotensive with a blood pressure of 89/78. Initial laboratory analysis consisted of CBC, coags, D-dimer, CMP, lactic acid, and TSH which are remarkable for white blood cell count 11.8, lactic acid 2.1, and TSH of 12.1. Influenza A/B/RSV/COVID-[address] brain demonstrated left parietal rem ote injury with encephalomalacia and nonspecific cortical white matter changes. Chest x-ray demonstrated cardiomegaly with mild pulmonary vascular congestion. In the ER she received 1 L of normal saline. She was placed in observation and hopsice was consulted. Patient seen and examined at bedside. She has some neck pain, no other compliants. Vital signs reviewed General: Nontoxic, no distress, appears at stated age Cardiovascular: S1S2 reg, no murmur Lungs: Decreased bs bilateral, no rhonchi, no rales, no accessory muscle use Abdominal: Soft, nontender to palpation, no guarding Ext: No gross muscle atrophy, no edema b/l lower extremities, no contractures Psych: Alert, oriented, appropriate affect Assessment/Plan: Episode of decreased responsiveness Atrial fibrillation with rapid ventricular response, newly discovered Intractable neck pain Advanced dementia with behavioral disturbances Hypertension -Follow blood pressures -Toradol 15 mg IV every 6 hours as needed moderate pain, morphine 2 mg IV every 4 hours as needed severe pain, Ativan 0.5 mg IV every 6 hours as needed anxiety, Haldol 2 mg oral every 6 hours as needed for hallucinations - Plan is d/c to SNF with hospice once arrangement have been made. Case discussed with hospice extensively currently investing cost of hospice at SNF and what patients needs will be. Wekaness and generalized debility - PT/OT - Fall precautions. Imaging: None new Data Review: None new Anticipated discharge date: in AM Anticipated discharge place: SNF with hospice Objective - Vital Signs Vital signs: Vital Signs Temp 97.9 F 10/24/23 07:24 Pulse 101 H 10/24/23 07:24 Resp 18 10/24/23 07:24 BP 162/76 10/24/23 07:24 Pulse Ox 92 L 10/24/23 07:24 FiO2 Intake & Output 10/23/23 10/24/23 10/24/23 18:59 06:59 18:59 Output Total 400 800 Balance -400 -800 Output: Urine 400 800 Other: Voiding Method External Catheter External Catheter External Catheter - Labs CBC & Chem 7: 10/22/23 11:55 10/22/23 11:55
[2023-10-24] MEDS: IBUPROFEN 600 MG TAB PO PRN (16:07)
[2023-10-24] MEDS: MORPHINE ORAL SOLN 10 MG/5 ML CUP PO PRN (18:09)
[2023-10-24] MEDS: MELATONIN 3 MG TABLET PO PRN (19:26)
--- NOTE | 2023-10-25 10:26 | P.PN ---
Subjective Progress Note Date: 10/25/23 Patient is a an 88-year-old female with known dementia who was sent in from her residential facility for decreased responsiveness. Of note the patient was recently at [facility] after she was found wandering and confused in her neighborhood. There she was diagnosed with underlying dementia worsened by urinary tract infection and was subsequently discharged to [facility] where she has been for approximately 1 week. On arrival to the ER here she was found to be in atrial fibrillation with rapid ventricular response and was hypotensive with a blood pressure of 89/78. Initial laboratory analysis consisted of CBC, coags, D-dimer, CMP, lactic acid, and TSH which are remarkable for WBC 11.8, lactic acid 2.1, and TSH of 12.1. Influenza A/B/RSV/COVID-[address] brain demonstrated left parietal remote injury with encephalomalacia and nonspecific cortical white matter changes. Chest x-ray demonstrated cardiomegaly with mild pulmonary vascular congestion. In the ER she received 1 L of normal saline. She was placed in observation and hopsice was consulted. 10/25 Patient seen and examined at bedside. Family at bedside. Pleasantly confused. They report right shoulder pain and restricted ROM. Discussed with case management, SNF is pending. Vital signs reviewed General: Nontoxic, no distress, appears at stated age Cardiovascular: S1S2 reg, no murmur Lungs: Decreased bs bilateral, no rhonchi, no rales, no accessory muscle use Abdominal: Soft, nontender to palpation, no guarding Ext: No gross muscle atrophy, no edema b/l lower extremities, no contractures Psych: Alert, oriented, appropriate affect Based on my assessment of this patient, this patient meets a moderate complexity level of care. Patient has an acute diagnosis of unresponsiveness with A-Fib RVR that poses a threat to life or bodily function. Right shoulder pain: XR ordered. Episode of decreased responsiveness Atrial fibrillation with rapid ventricular response, newly discovered Intractable neck pain Advanced dementia with behavioral disturbances Hypertension Wekaness and generalized debility: Fall precautions. PT and OT on board. Toradol 15 mg IV Q6H PRN moderate pain, Morphine 2 mg IV Q4H PRN severe pain, Ativan 0.5 mg IV Q6H PRN anxiety, Haldol 2 mg PO Q6H PRN hallucinations. Plan is discharge to SNF with hospice once arrangement have been made. CODE STATUS: NO CODE DVT Prophylaxis: GI Prophylaxis: Designated medical POA if patient is not able to make medical decisions for themselves: I have reviewed the following management consultant notes: I have reviewed the results of the following tests: I have ordered the following tests: Right shoulder XR I have discussed the care of this patient with the following independent historian: I have independently interpreted the following test below: I have discussed the management of this patient with the following physician: Objective - Vital Signs Vital signs: Vital Signs Temp 97.7 F 10/25/23 08:00 Pulse 85 10/25/23 08:00 Resp 16 10/25/23 08:00 BP 150/75 10/25/23 08:00 Pulse Ox 94 L 10/25/23 07:06 FiO2 Intake & Output 10/24/23 10/25/23 10/25/23 18:59 06:59 18:59 Intake Total 120 Output Total 650 900 Balance -650 -780 Intake: Oral 120 Output: Urine 650 900 Other: Voiding Method External Catheter External Catheter External Catheter - Labs CBC & Chem 7: 10/22/23 11:55 10/22/23 11:55
--- NOTE | 2023-10-25 12:45 | XR ---
EXAMINATION TYPE: XR shoulder complete RT DATE OF EXAM: 10/25/2023 11:52 AM CLINICAL INDICATION:Female, 88 years old with history of Pain; COMPARISON: None TECHNIQUE: XR shoulder complete RT; examined in AP, internally rotated and scapular Y projections. FINDINGS: No evidence of acute osseous pathology, joint dislocation, or soft tissue swelling. The remaining po rtions of the visualized chest are unremarkable. Degeneration changes of the right acromion, distal clavicle with osteophyte formation. There is osteophyte formation of the glenoid and humeral head. Th ere is joint space narrowing of glenohumeral joint IMPRESSION: 1. No acute osseous pathology. 2. Moderate shoulder osteoarthrosis.
--- NOTE | 2023-10-26 11:18 | P.DS ---
Providers Date of admission: 10/22/23 14:57 Expected date of discharge: 10/26/23 Attending physician: Chrissy Barker DO Consults: 10/22/23 14:57 Consult Physician Urgent Consulting Provider: [facility] Consult Reason/Comments: new onset afib with rvr Do you want consulting provider notified?: Yes Primary care physician: Alaina Kelsey DO Hospital Course: Patient is a an 88-year-old female with known dementia who was sent in from her long term facility for decreased responsiveness. Of note the patient was recently at [facility] after she was found wandering and confused in her neighborhood. There she was diagnosed with underlying dementia worsened by urinary tract infection and was subsequently discharged to [facility] where she has been for approximately 1 week. On arrival to the ER here she was found to be in atrial fibrillation with rapid ventricular response and was hypotensive with a blood pressure of 89/78. Initial laboratory analysis consisted of CBC, coags, D-dimer, CMP, lactic acid, and TSH which are remarkable for WBC 11.8, lactic acid 2.1, and TSH of 12.1. Influenza A/B/RSV/COVID-[address] brain demonstrated left parietal remote injury with encephalomalacia and nonspecific cortical white matter changes. Chest x-ray demonstrated cardiomegaly with mild pulmonary vascular congestion. In the ER she received 1 L of normal saline. She was placed in observation and hopsice was consulted. 10/25 Patient seen and examined at bedside. Family at bedside. Pleasantly confused. They report right shoulder pain and restricted ROM. Discussed with case management, SNF is pending. 10/26 Patient was seen and examined. Pleasantly confused. R shoulder XR shows severe OA. Insurance authorization for SNF is pending. Hopeful discharge today. Patient to enroll in hospice. Vital signs reviewed General: Nontoxic, no distress, appears at stated age Cardiovascular: S1S2 reg, no murmur Lungs: Decreased bs bilateral, no rhonchi, no rales, no accessory muscle use Abdominal: Soft, nontender to palpation, no guarding Ext: No gross muscle atrophy, no edema b/l lower extremities, no contractures Psych: Alert, oriented, appropriate affect Discharge Diagnosis: Right shoulder pain Episode of decreased responsiveness Atrial fibrillation with rapid ventricular response, newly discovered Intractable neck pain Advanced dementia with behavioral disturbances Hypertension [place] and generalized debility This complex discharge took 35 minutes to complete. Patient Condition at Discharge: Stable Plan - Discharge Summary Discharge Rx Participant: No New Discharge Prescriptions: New LORazepam [Ativan] 0.5 mg PO TID PRN 3 Days #9 tab PRN Reason: Anxiety haloperidoL [Haldol] 2 mg PO TID PRN #9 tab PRN Reason: Psychosis Acetaminophen Tab [Tylenol] 650 mg PO Q6HR PRN tab PRN Reason: Mild Pain Or Fever > 100.5 Melatonin 3 mg PO HS PRN tab PRN Reason: Insomnia MORPHINE ORAL NICOLETTE 2mg/mL [Morphine Oral Soln 2 MG/ML] 5 mg PO Q4HR PRN #45 ml PRN Reason: Moderate Pain (Scale 4 To 6) Continue QUEtiapine [SEROquel] 25 mg PO HS@1999 amLODIPine [Norvasc] 2.5 mg PO DAILY Multivitamins, Thera [Multivitamin (formulary)] 1 tab PO HS Sodium Chloride 0.65% Nasal [Deep Sea (Saline)] 1 spr NASAL Q1HR PRN PRN Reason: Congestion Simvastatin [Zocor] 20 mg PO HS@1999 Famotidine [Pepcid] 20 mg PO DAILY Aspirin 81 mg PO DAILY Discontinued Cefuroxime [Ceftin] 250 mg PO BID Discharge Medication List Aspirin 81 mg PO DAILY 10/22/23 [History] Famotidine [Pepcid] 20 mg PO DAILY 10/22/23 [History] Multivitamins, Thera [Multivitamin (formulary)] 1 tab PO HS 10/22/23 [History] QUEtiapine [SEROquel] 25 mg PO HS@199910/22/23 [History] Simvastatin [Zocor] 20 mg PO HS@199910/22/23 [History] Sodium Chloride 0.65% Nasal [Deep Sea (Saline)] 1 spr NASAL Q1HR PRN 10/22/23 [History] amLODIPine [Norvasc] 2.5 mg PO DAILY 10/22/23 [History] Acetaminophen Tab [Tylenol] 650 mg PO Q6HR PRN tab 10/26/23 [Rx] LORazepam [Ativan] 0.5 mg PO TID PRN 3 Days #9 tab 10/26/23 [Rx] MORPHINE ORAL NICOLETTE 2mg/mL [Morphine Oral Soln 2 MG/ML] 5 mg PO Q4HR PRN #45 ml 10/26/23 [Rx] Melatonin 3 mg PO HS PRN tab 10/26/23 [Rx] haloperidoL [Haldol] 2 mg PO TID PRN #9 tab 10/26/23 [Rx] Follow up Appointment(s)/Referral(s): Alaina Kelsey DO [Primary Care Provider] - 1-2 days Discharge Disposition: [facility]
[2023-10-26] MEDS: SALINE NASAL GEL 14.1 GM TUBE NASAL PRN (14:09)
[2023-10-26 14:51] VITALS: BP 129/71; PULSE 99; RESP 20; TEMP 97.4
== END 2023-10-26 17:30 | disposition hospice, inpatient (51) | DRG 309 ==
LOC: EC 11:25 → 3SCARD 14:57 → 5NMEDONC 18:56
PROVIDERS: ADMIT Internal Medicine; ATTEND Internal Medicine
DX: I48.91 Unspecified atrial fibrillation (principal); F03.918 Unspecified dementia, unspecified severity, with other behavioral disturbance; N39.0 Urinary tract infection, site not specified; Z66 Do not resuscitate; Z51.5 Encounter for palliative care; G93.89 Other specified disorders of brain; I11.9 Hypertensive heart disease without heart failure; I95.9 Hypotension, unspecified; I45.10 Unspecified right bundle-branch block; Z28.310 Unvaccinated for COVID-19; Z91.83 Wandering in diseases classified elsewhere; Z87.440 Personal history of urinary (tract) infections; Z79.82 Long term (current) use of aspirin; Z79.899 Other long term (current) drug therapy; Z11.52 Encounter for screening for COVID-19
CPT/HCPCS: 36415; 70450; 71046; 80053; 80306; 81001; 83605; 84439; 84443; 84484; 85025; 85379; 85610; 85730; 87636; 93005; 96361; 96374; 96375; 99291